=== PATIENT | female | born 1950 | race Asian ===

== ENCOUNTER 2023-04-21 06:44 | Day surgery (SDC) | payer OTHER ==
[~2023-04-21] VITALS: Ht 157.5 cm; Wt 59.0 kg
[2023-04-21] MEDS ORDERED: fentaNYL citrate 0.05 MG/ML VIAL ONE (07:10)
[2023-04-21] MEDS: fentaNYL citrate 0.05 MG/ML VIAL IVP ONE (07:58)
[2023-04-21] MEDS: LIDOCAINE 2% 100 MG/5 ML UJET TP ONE (08:07)
== END 2023-04-21 08:55 | disposition home or self-care (01) ==
LOC: MMU 06:44 → MDS 06:44
PROVIDERS: ATTEND Internal Medicine Gastroenterology
DX: Z12.11 Encounter for screening for malignant neoplasm of colon (principal); K64.8 Other hemorrhoids; I10 Essential (primary) hypertension; K59.00 Constipation, unspecified; G47.00 Insomnia, unspecified; Z90.710 Acquired absence of both cervix and uterus; Z80.0 Family history of malignant neoplasm of digestive organs; Z79.899 Other long term (current) drug therapy; Z98.890 Other specified postprocedural states
CPT/HCPCS: 45385; J3010